=== PATIENT | male | born 1950 | race Hispanic/Latino ===

== ENCOUNTER 2018-05-18 02:10 | Emergency (ER) | payer MEDICARE ==
[~2018-05-18] VITALS: Ht 170.2 cm; Wt 98.9 kg
[~2018-05-18 02:10] MED LIST: ATORVASTATIN PO; FARXIGA PO; LOSARTAN PO; PREDNISONE5 MG PO; SINGULAIR10 MG PO; XIGDUO PO; Z.0.LISINOPRIL5 MG PO; Z.0.NIASPAN500 MG PO; Z.2.METFORMIN HCL500 PO
== END 2018-05-18 03:45 | disposition left against medical advice (07) ==
LOC: ER 02:10
DX: M54.5 Low back pain (principal)

== ENCOUNTER → 2018-06-28 | Outpatient (CLI) | payer MEDICARE ==
--- NOTE | 2018-06-28 09:59 | Diagnostic Imaging Report ---
Left knee MRI without contrast. History: Knee pain. Decreased range of motion. Instability. Comparison: None. Technique: Multiplanar multi-sequence MRI of the knee without contrast. Findings: Medial compartment: There is mid substance degeneration of the medial meniscus with mild fraying. No meniscal tear is seen. The medial compartmental articular cartilage surfaces are intact. The medial collateral ligament complex is intact. Lateral compartment: There is an obliquely oriented undersurface tear involving the posterior horn and body segments of the lateral meniscus best seen on coronal image 15. The lateral compartmental articular cartilage surfaces are slightly thin. The lateral collateral ligament complex is intact. Intercondylar notch: The ACL and PCL are intact. Patellofemoral compartment: No chondromalacia or patellar dislocation. Extensor mechanism: The quadriceps and patellar tendons are normal. Other findings: There is a joint effusion and synovitis. There is no acute fracture, subluxation or avascular necrosis. IMPRESSION: Lateral meniscus tear with mild degenerative arthrosis in the lateral compartment of the knee. Signed by: Dr. Burt Mcguire M.D. on 06/28/2018 9:56 AM
--- NOTE | 2018-06-28 10:09 | Diagnostic Imaging Report ---
EXAMINATION: MRI of the lumbar spine without contrast HISTORY: Low-back pain radiating to the left lower extremity for pulmonary tear with numbness and weakness COMPARISON: Lumbar spine MRI in 04/21/17 TECHNIQUE: Sagittal T1, T2, STIR; axial T2 and proton density. FINDINGS: It is assumed that there are 5 lumbar vertebrae. Curvature/Alignment: Normal lordosis. Unchanged grade 2 spondylolisthesis at L4-L5 due to advanced facet arthrosis, underlying spondylolysis cannot be excluded. Vertebrae: No evidence of recent fracture, infection, or neoplasm. Conus: Normal, terminating at T12-L1 Cauda equina: Unremarkable. Lower thoracic: Unremarkable. Paraspinal soft tissues: Partially visualized T2 hyperintense probable cyst in the right kidney. Degenerative changes: L1-L2: Mild symmetric disc bulge without significant stenosis. L2-L3: Mild symmetric disc bulge, ligamenta flava thickening, consider processes and prominence of the dorsal epidural fat. Mild narrowing of the thecal sac. Minimal foraminal narrowing. L3-L4: Asymmetric to left disc osteophyte. Approximately 7 mm AP findings 1.3 cm length new left foraminal/extraforaminal disc herniation is compressing the exiting left L3 nerve root. Ligamenta flava thickening, prominence of the dorsal epidural fat and facet arthrosis. Severe narrowing of the thecal sac. L4-L5: Mild symmetric disc for which, prominence of the dorsal epidural fat, the ligamenta flava thickening and severe facet processes. Severe narrowing of the thecal sac. Mild bilateral foraminal stenoses. L5-S1: Moderate facet arthrosis without canal or foraminal stenoses. Sacroiliac joints: Mild degenerative changes bilaterally IMPRESSION: 1. Large left foraminal/extraforaminal disc herniation at L3-L4 is compressing the exiting left L3 nerve root. This was not seen on prior MRI dated 04/21/17. 2. Unchanged grade 1 spondylolisthesis at L4-L5 with advanced facet arthrosis. 3. Persistent prominent narrowing of the thecal sac from L3-L4 to L4-L5 due to degenerative changes and prominence of the dorsal epidural fat as detailed above. Signed by: Dr. Mel Murdock M.D. on 06/28/2018 10:06 AM
== END ==
LOC: MRI 07:46
PROVIDERS: ATTEND Physical Medicine & Rehabilitation Pain Medicine
DX: M47.27 Other spondylosis with radiculopathy, lumbosacral region (principal)
CPT/HCPCS: 72148

== ENCOUNTER → 2020-05-09 | Day surgery (SDC) | payer MEDICARE, OTHER ==
[2020-03-29 11:42] LABS: BASOPHILS % 0.5 % (0.0-1.0); EOSINOPHILS # (AUTO) 0.1 (0.0-0.4); EOSINOPHILS % 1.5 % (0.0-6.0); HEMATOCRIT 44.8 % (38.2-49.6); HEMOGLOBIN 14.8 g/dL (14.0-18.0); LYMPHOCYTES # (AUTO) 1.2 (1.0-3.2); LYMPHOCYTES % 14.7 % (18.0-39.1); MEAN CORPUSCULAR HEMOGLOBIN 29.2 pg (28-32); MEAN CORPUSCULAR VOLUME 88.5 fL (81-99); MONOCYTES # (AUTO) 0.5 (0.2-0.8); MONOCYTES % 6.5 % (4.4-11.3); NEUTROPHILS # (AUTO) 6.2 (2.1-6.9); NEUTROPHILS % 76.1 % (38.7-80.0); PLATELET COUNT 229 x10e3/uL (140-360); RED BLOOD COUNT 5.06 x10e6/uL (4.3-5.7); RED CELL DISTRIBUTION WIDTH 13.4 % (11.7-14.4)
[2020-05-03 15:40] LABS: BASOPHILS # (AUTO) 0.1 (0.0-0.1); BASOPHILS % 0.8 % (0.0-1.0); EOSINOPHILS # (AUTO) 0.2 (0.0-0.4); EOSINOPHILS % 1.9 % (0.0-6.0); HEMATOCRIT 48.4 % (38.2-49.6); HEMOGLOBIN 15.6 g/dL (14.0-18.0); LYMPHOCYTES # (AUTO) 1.3 (1.0-3.2); LYMPHOCYTES % 16.6 % (18.0-39.1); MEAN CORPUSCULAR HEMOGLOBIN 29.1 pg (28-32); MEAN CORPUSCULAR HGB CONC 32.2 g/dL (31-35); MEAN CORPUSCULAR VOLUME 90.3 fL (81-99); MONOCYTES # (AUTO) 0.6 (0.2-0.8); MONOCYTES % 7.9 % (4.4-11.3); NEUTROPHILS # (AUTO) 5.7 (2.1-6.9); NEUTROPHILS % 71.8 % (38.7-80.0); PLATELET COUNT 234 x10e3/uL (140-360); RED BLOOD COUNT 5.36 x10e6/uL (4.3-5.7); RED CELL DISTRIBUTION WIDTH 13.8 % (11.7-14.4)
[~2020-05-09] MED LIST changes: +ACTOS15 MG PO; +FENTANYL CITRATE/PF 100MCG/2 ML INJ ONE; +HYDROCHLOROTHIA25 MG PO; +HYOSCYAMINE 0.125 MG TAB ONE; +LOSARTAN-HCTZ1 EAC1 PO; +MIDAZOLAM HCL 2 MG/2 ML VIAL ONE; +MONTELUKAST SOD10 MG PO; +PROPOFOL IV EMULSION 10 MG/ML 20 ML VIAL ONE
[2020-05-09 12:15] VITALS: BP 112/73
--- NOTE | 2020-05-09 15:54 | Operative Report ---
DATE OF PROCEDURE: 05/09/2020 SURGEON: Harshad Marquez MD PROCEDURE: Colonoscopy with polypectomy. INDICATIONS FOR COLONOSCOPY: Surveillance colonoscopy, personal history of colon polyps. MEDICATIONS: The patient was done under MAC, please see anesthesiologist's note. PROCEDURE IN DETAIL: With the patient in the left lateral decubitus position, a flexible fiberoptic Olympus colonoscope was inserted into the rectum with ease and advanced all the way to the cecum. It was then withdrawn slowly. Mucosa overlying the cecum, ascending colon, transverse colon, and descending colon appeared to be within normal limits. A minute polyp was removed per hot biopsy forceps from the sigmoid colon. The rectum appeared to be within normal limits. The scope was then retroflexed into the distal rectum and small internal hemorrhoids were noted, none of which was actively bleeding. The scope was then straightened out, it was subsequently withdrawn, and the patient tolerated the procedure well. IMPRESSION: 1. Sigmoid colon polyp, hot biopsied. 2. Internal hemorrhoids, none actively bleeding. PLAN: Follow up histology. Initiate high-fiber, low-fat diet. Initiate high-fiber supplement. The patient might benefit from a followup colonoscopy in 3 to 5 years. Harshad Marquez MD [facility] [place][id number] cc: Tom Garcia
== END | disposition home or self-care (01) ==
LOC: OR 08:28
PROVIDERS: ATTEND Internal Medicine Gastroenterology
DX: Z09 Encounter for follow-up examination after completed treatment for conditions other than malignant neoplasm (principal); D12.5 Benign neoplasm of sigmoid colon; K64.8 Other hemorrhoids; K62.5 Hemorrhage of anus and rectum; K44.9 Diaphragmatic hernia without obstruction or gangrene; G47.33 Obstructive sleep apnea (adult) (pediatric); E11.9 Type 2 diabetes mellitus without complications; I10 Essential (primary) hypertension; E78.00 Pure hypercholesterolemia, unspecified; N20.0 Calculus of kidney; F41.9 Anxiety disorder, unspecified; Z01.810 Encounter for preprocedural cardiovascular examination; Z01.812 Encounter for preprocedural laboratory examination; Z11.59 Encounter for screening for other viral diseases; Z68.33 Body mass index [BMI] 33.0-33.9, adult
CPT/HCPCS: 36415; 45378; 45384; 82948; 85025; 88305; 93005; J2250; J3010; U0002

== ENCOUNTER → 2021-06-17 | Emergency (ER) | payer MEDICARE ==
[~2021-06-17] MED LIST changes: -FENTANYL CITRATE/PF 100MCG/2 ML INJ ONE; -HYOSCYAMINE 0.125 MG TAB ONE; -MIDAZOLAM HCL 2 MG/2 ML VIAL ONE; -PROPOFOL IV EMULSION 10 MG/ML 20 ML VIAL ONE
== END | disposition home or self-care (01) ==
LOC: ER 01:00
DX: R60.9 Edema, unspecified (principal); I10 Essential (primary) hypertension; E11.9 Type 2 diabetes mellitus without complications; E78.5 Hyperlipidemia, unspecified; Z87.442 Personal history of urinary calculi
CPT/HCPCS: 99282

== ENCOUNTER 2022-03-21 00:28 | Emergency (ER) | payer MEDICARE ==
[~2022-03-21] VITALS: Ht 170.2 cm; Wt 98.9 kg
[2022-03-21 01:04] LABS: BASOPHILS % 0.5 % (0.0-1.0); EOSINOPHILS # (AUTO) 0.2 (0.0-0.4); EOSINOPHILS % 2.6 % (0.0-6.0); HEMATOCRIT 50.1 % (38.2-49.6); HEMOGLOBIN 16.1 g/dL (14.0-18.0); LYMPHOCYTES % 25.8 % (18.0-39.1); MEAN CORPUSCULAR HGB CONC 32.1 g/dL (31-35); MEAN CORPUSCULAR VOLUME 93.3 fL (81-99); MONOCYTES # (AUTO) 0.6 (0.2-0.8); MONOCYTES % 7.8 % (4.4-11.3); NEUTROPHILS # (AUTO) 4.8 (2.1-6.9); NEUTROPHILS % 62.5 % (38.7-80.0); PLATELET COUNT 238 x10e3/uL (140-360); RED BLOOD COUNT 5.37 x10e6/uL (4.3-5.7); RED CELL DISTRIBUTION WIDTH 13.4 % (11.7-14.4)
[2022-03-21 01:24] LABS: ALANINE AMINOTRANSFERASE 26 IU/L (0-55); ALBUMIN 4.3 g/dL (3.5-5.0); ALBUMIN/GLOBULIN RATIO 1.3 (0.8-2.0); ALKALINE PHOSPHATASE 149 IU/L (40-150); BLOOD UREA NITROGEN 18 mg/dL (7-26); BUN/CREATININE RATIO 19 (6-25); CALCIUM 9.3 mg/dL (8.4-10.2); CARBON DIOXIDE 27 mmol/L (22-29); CHLORIDE 103 mmol/L (98-107); CREATINE KINASE 217 IU/L (30-200); CREATININE, SERUM 0.96 mg/dL (0.72-1.25); GLUCOSE 95 mg/dL (74-118); SODIUM 141 mmol/L (136-145)
== END 2022-03-21 02:44 | disposition home or self-care (01) ==
LOC: ER 00:36
DX: R07.89 Other chest pain (principal); I10 Essential (primary) hypertension; E11.9 Type 2 diabetes mellitus without complications; E78.5 Hyperlipidemia, unspecified; Z87.442 Personal history of urinary calculi
CPT/HCPCS: 36415; 71045; 80053; 82550; 82553; 83690; 83880; 84484; 85025; 85379; 93005; 99284

== ENCOUNTER 2024-07-24 14:50 | Inpatient (IN) | payer MEDICARE ==
[~2024-07-24] VITALS: Ht 170.2 cm; Wt 101.6 kg
[2024-07-24 15:45] VITALS: TEMP 97.6
[2024-07-24] MEDS: KETOROLAC TROMETHAMINE 30 MG/ML VIAL IV STA (16:26)
[2024-07-24] MEDS: CYCLOBENZAPRINE HCL 10 MG TAB PO ONE (16:27)
[2024-07-24 16:36] LABS: BASOPHILS # (AUTO) 0.1 (0.0-0.1); BASOPHILS % 0.5 % (0.0-1.0); EOSINOPHILS # (AUTO) 0.1 (0.0-0.4); EOSINOPHILS % 0.7 % (0.0-6.0); HEMATOCRIT 49.5 % (38.2-49.6); LYMPHOCYTES % 8.4 % (18.0-39.1); MEAN CORPUSCULAR HEMOGLOBIN 30.4 pg (28-32); MEAN CORPUSCULAR HGB CONC 32.3 g/dL (31-35); MEAN CORPUSCULAR VOLUME 93.9 fL (81-99); MONOCYTES # (AUTO) 0.8 (0.2-0.8); MONOCYTES % 6.5 % (4.4-11.3); NEUTROPHILS # (AUTO) 10.2 (2.1-6.9); NEUTROPHILS % 83.2 % (38.7-80.0); PLATELET COUNT 253 x10e3/uL (140-360); RED BLOOD COUNT 5.27 x10e6/uL (4.3-5.7); WHITE BLOOD COUNT 12.22 x10e3/uL (4.8-10.8)
[2024-07-24 16:51] LABS: ALBUMIN 4.4 g/dL (3.5-5.0); ALBUMIN/GLOBULIN RATIO 1.4 (0.8-2.0); BILIRUBIN,TOTAL 0.8 mg/dL (0.2-1.2); CALCIUM 9.8 mg/dL (8.4-10.2); CREATININE, SERUM 0.89 mg/dL (0.72-1.25); TOTAL PROTEIN 7.5 g/dL (6.5-8.1)
[2024-07-24] MEDS ORDERED: Morphine 4mg INJECTION 4 MG/ML INJ IV PRN (18:45)
[2024-07-24] MEDS ORDERED: SODIUM CHLORIDE FLUSH 10 ML SYR INJ PRN (18:45)
[2024-07-24] MEDS ORDERED: ONDANSETRON HCL INJ 2MG/ML 2ML 2 MG/ML VIAL IV PRN (18:45)
[2024-07-24 19:53] VITALS: PULSE 72; RESP 15
[2024-07-24 20:14] VITALS: BP 143/78; PULSE 84; RESP 20; TEMP 97.9; O2SAT 97
[2024-07-24 20:15] VITALS: BP 143/78; PULSE 84; RESP 20; TEMP 97.9; O2SAT 97
[2024-07-24 21:00] VITALS: BP 143/78; PULSE 84; RESP 20; TEMP 97.9; O2SAT 97
[2024-07-24] MEDS ORDERED: CELEBREX200 MG PO (22:01)
[2024-07-24] MEDS ORDERED: ACETAMINOPHEN-1 EAC4 PO (22:04)
[2024-07-25] VITALS (10 sets, daily range): BP systolic 108–135; BP diastolic 62–87; PULSE 83–102; RESP 17–20; TEMP 97.6–98.4; O2SAT 95–100
[2024-07-25] MEDS ORDERED: LIDOCAINE 4% PATCH TP PRN (00:45)
[2024-07-25] MEDS ORDERED: SIMETHICONE 80 MG CHEW PO PRN (00:45)
[2024-07-25] MEDS ORDERED: POTASSIUM CHLORIDE 20 MEQ TAB CR PO PRN (00:45)
[2024-07-25] MEDS ORDERED: ACETAMINOPHEN 325 MG TAB PO PRN (00:45)
[2024-07-25] MEDS ORDERED: DEXTROSE 50% SYRINGE 50 ML IV PRN ×2 (00:45)
[2024-07-25] MEDS ORDERED: BENZONATATE 100 MG CAP PO PRN (00:45)
[2024-07-25] MEDS ORDERED: MELATONIN 5 MG TABLET PO PRN (00:45)
[2024-07-25] MEDS ORDERED: HYDRALAZINE HCL 20 MG/ML VIAL IV PRN (00:45)
[2024-07-25] MEDS ORDERED: DIPHENHYDRAMINE HCL 25 MG CAP PO PRN (00:45)
[2024-07-25] MEDS ORDERED: ALBUTEROL/IPRATROPIUM 3 ML NEB NEB PRN (00:45)
[2024-07-25 06:29] LABS: BASOPHILS # (AUTO) 0.1 (0.0-0.1); BASOPHILS % 0.7 % (0.0-1.0); EOSINOPHILS # (AUTO) 0.3 (0.0-0.4); EOSINOPHILS % 3.3 % (0.0-6.0); HEMATOCRIT 46.3 % (38.2-49.6); HEMOGLOBIN 14.5 g/dL (14.0-18.0); LYMPHOCYTES % 13.3 % (18.0-39.1); MEAN CORPUSCULAR HGB CONC 31.3 g/dL (31-35); MEAN CORPUSCULAR VOLUME 95.7 fL (81-99); MONOCYTES # (AUTO) 0.7 (0.2-0.8); MONOCYTES % 9.3 % (4.4-11.3); NEUTROPHILS # (AUTO) 5.5 (2.1-6.9); NEUTROPHILS % 72.4 % (38.7-80.0); PLATELET COUNT 220 x10e3/uL (140-360); RED BLOOD COUNT 4.84 x10e6/uL (4.3-5.7); WHITE BLOOD COUNT 7.65 x10e3/uL (4.8-10.8)
[2024-07-25 07:00] LABS: ALBUMIN 3.8 g/dL (3.5-5.0); ALBUMIN/GLOBULIN RATIO 1.4 (0.8-2.0); ANION GAP 10.6 mmol/L (8-16); BILIRUBIN,TOTAL 0.6 mg/dL (0.2-1.2); CREATININE, SERUM 0.8 mg/dL (0.72-1.25); POTASSIUM 3.6 mmol/L (3.5-5.1); TOTAL PROTEIN 6.5 g/dL (6.5-8.1)
[2024-07-25 07:11] LABS: MAGNESIUM 2.2 MG/DL (1.3-2.1)
[2024-07-25 07:32] LABS: THYROID STIMULATING HORMONE 1.074 uIU/mL (0.350-4.940)
[2024-07-25] MEDS: PANTOPRAZOLE SOD 40 MG TABEC PO SCH (09:27)
[2024-07-25] MEDS: ATORVASTATIN 20 MG TAB PO SCH (20:47)
[2024-07-25] MEDS: DOCUSATE SODIUM 100 MG CAP PO PRN (20:53)
[2024-07-25] MEDS: POLYETHYLENE GLYCOL 3350 17 GM PACK PO PRN (23:49)
[2024-07-26] VITALS (9 sets, daily range): BP systolic 125–139; BP diastolic 73–82; PULSE 71–114; RESP 16–19; TEMP 97.2–98.6; O2SAT 97–100
[2024-07-26 06:03] LABS: BASOPHILS # (AUTO) 0.1 (0.0-0.1); EOSINOPHILS # (AUTO) 0.3 (0.0-0.4); HEMATOCRIT 49.5 % (38.2-49.6); HEMOGLOBIN 15.9 g/dL (14.0-18.0); LYMPHOCYTES # (AUTO) 1.2 (1.0-3.2); LYMPHOCYTES % 16.9 % (18.0-39.1); MEAN CORPUSCULAR HEMOGLOBIN 30.3 pg (28-32); MEAN CORPUSCULAR HGB CONC 32.1 g/dL (31-35); MEAN CORPUSCULAR VOLUME 94.3 fL (81-99); MONOCYTES # (AUTO) 0.6 (0.2-0.8); NEUTROPHILS % 69.1 % (38.7-80.0); PLATELET COUNT 240 x10e3/uL (140-360); RED BLOOD COUNT 5.25 x10e6/uL (4.3-5.7); WHITE BLOOD COUNT 7.24 x10e3/uL (4.8-10.8)
[2024-07-26 06:19] LABS: INR 0.94; PROTHROMBIN TIME 13.1 seconds (11.9-14.5)
[2024-07-26 06:20] LABS: PARTIAL THROMBOPLASTIN TIME 26.8 seconds (23.8-35.5)
[2024-07-26 06:25] LABS: ANION GAP 13.9 mmol/L (8-16); CALCIUM 9.6 mg/dL (8.4-10.2); CREATININE, SERUM 0.83 mg/dL (0.72-1.25); POTASSIUM 3.9 mmol/L (3.5-5.1)
[2024-07-26] MEDS ORDERED: Vancomycin IV 1 GM VIAL ONE (06:38)
[2024-07-26] MEDS ORDERED: THROMBIN FOR SOLN 5,000 UNIT VIAL ONE (06:38)
[2024-07-26] MEDS ORDERED: LIDOCAINE 1% W/EPINEPHRINE 20 ML VIAL ONE (06:38)
[2024-07-26] MEDS ORDERED: FENTANYL CITRATE/PF 100MCG/2 ML INJ ONE (06:59)
[2024-07-26] MEDS ORDERED: LIDOCAINE HCL 2% LOCAL INJ 5 ML SDV VIAL INJ ONE (06:59)
[2024-07-26] MEDS ORDERED: PROPOFOL IV EMULSION 10 MG/ML 20 ML VIAL ONE ×2 (06:59→08:05)
[2024-07-26] MEDS ORDERED: ROCURONIUM BROMIDE 1 ML IV ONE ×2 (06:59→08:07)
[2024-07-26] MEDS ORDERED: MIDAZOLAM HCL 2 MG/2 ML VIAL ONE (06:59)
[2024-07-26] MEDS ORDERED: SODIUM CHLORIDE 0.9% 100 ML ONE (07:12)
[2024-07-26] MEDS ORDERED: SUGAMMADEX SODIUM 200 MG/2 ML VIAL IV ONE (07:12)
[2024-07-26] MEDS ORDERED: DEXMEDETOMIDINE HCL 200 MCG/2 ML VIAL ONE (07:17)
[2024-07-26] MEDS ORDERED: ONDANSETRON HCL INJ 2MG/ML 2ML 2 MG/ML VIAL ONE (07:46)
[2024-07-26] MEDS ORDERED: DEXAMETHASONE SOD PHOS INJ 4 MG/ML SDV ONE (07:46)
[2024-07-26] MEDS ORDERED: ACETAMINOPHEN 1000 MG/100 ML 100 ML IV ONE (07:52)
[2024-07-26] MEDS ORDERED: OXYCODONE/ACETAMINOPHEN 5-325 1 EACH TABLET PO PRN (09:30)
[2024-07-26] MEDS ORDERED: ONDANSETRON HCL INJ 2MG/ML 2ML 2 MG/ML VIAL IV PRN (09:30)
[2024-07-26] MEDS ORDERED: MAGNESIUM/ALUMINUM/SIMETHICONE 30 ML UDC PO PRN (09:30)
[2024-07-26] MEDS ORDERED: PROMETHAZINE HCL (IM) 25 MG/ML VIAL IM PRN (09:30)
[2024-07-26] MEDS ORDERED: ZOLPIDEM TARTRATE 5 MG TAB PO PRN (09:30)
[2024-07-26] MEDS ORDERED: HYDROMORPHONE 2MG/ML IV PRN (09:30)
[2024-07-26] MEDS ORDERED: ACETAMINOPHEN 325 MG TAB PO PRN (09:30)
[2024-07-26] MEDS ORDERED: CARISOPRODOL 350 MG TAB PO PRN (09:30)
[2024-07-26] MEDS ORDERED: MORPHINE SULFATE 5 MG/ML VIAL IM PRN (09:30)
[2024-07-26] MEDS: FENTANYL CITRATE/PF 100MCG/2 ML INJ ONE (10:09)
[2024-07-26] MEDS: HYDROCODONE/APAP 5MG-325MG TAB PO PRN (16:25)
[2024-07-26] MEDS: LACTULOSE SYRUP 20 GM/30 ML UDC PO SCH (16:25)
[2024-07-27 04:00] VITALS: BP 136/74; PULSE 79; RESP 18; TEMP 97.8; O2SAT 100
[2024-07-27 06:28] VITALS: PULSE 66; RESP 21; O2SAT 95
[2024-07-27 07:49] VITALS: BP 146/74; PULSE 75; RESP 19; TEMP 97.8; O2SAT 97
[2024-07-27 08:45] VITALS: BP 146/74; PULSE 75; RESP 19; TEMP 97.8; O2SAT 97
[2024-07-27 11:38] VITALS: BP 128/68; PULSE 85; RESP 19; TEMP 97.8; O2SAT 97
== END 2024-07-27 14:04 | disposition home or self-care (01) | DRG 520 ==
LOC: ER 15:20 → ERHOLD 18:38 → MED/SURG2 20:14 → OBSVTOIN 07-25 14:15 → UNDODISIN 07-27 14:04
PROVIDERS: ADMIT Internal Medicine; ATTEND Internal Medicine
PROC: 01NB0ZZ Release Lumbar Nerve, Open Approach (ICD-10-PCS; 2024-07-26)
PROC: 0ST20ZZ Resection of Lumbar Vertebral Disc, Open Approach (ICD-10-PCS; principal; 2024-07-26 07:30)
DX: M48.062 Spinal stenosis, lumbar region with neurogenic claudication (principal); M51.16 Intervertebral disc disorders with radiculopathy, lumbar region; M43.16 Spondylolisthesis, lumbar region; M48.07 Spinal stenosis, lumbosacral region; M21.372 Foot drop, left foot; I10 Essential (primary) hypertension; E78.5 Hyperlipidemia, unspecified; E11.9 Type 2 diabetes mellitus without complications; Z79.84 Long term (current) use of oral hypoglycemic drugs; Z79.899 Other long term (current) drug therapy
CPT/HCPCS: 36415; 71046; 72020; 72131; 72148; 80048; 80053; 82948; 83036; 83735; 84443; 85025; 85610; 85730; 88304; 88311; 94799; 99284; G0378; J0690; J1100; J1885; J2003; J2250; J2405; J7050